=== PATIENT | female | born 1980 | race Caucasian/White ===

== ENCOUNTER 2016-08-14 08:02 | Day surgery (SDC) | payer BC, OTHER ==
[2016-07-31 15:19] VITALS: BMI 58.0
--- NOTE | 2016-07-31 16:10 | PAT Medication Instructions ---
Service Date Jul 31, 2016. Current Home Medication List Acetaminophen (Tylenol), 325 MG PO UD PRN for Pain Atorvastatin (Lipitor), 40 MG PO QPM Etanercept (Enbrel), 1 DOSE SQ saturdays Furosemide (Lasix), 20 MG PO 3 pm Hydrochlorothiazide (Hctz), 25 MG PO HS Hydrocodon/Acetaminophen 5MG/300MG (Vicodin (5MG/300MG)), 1 TAB PO BID PRN for Pain Ibuprofen (Motrin), 800 MG PO UD PRN for Pain Multiple Vitamins W/ Minerals (Hair Skin and Nails Formu), 1 TAB PO BID Naltrexone HCl-Bupropion HCl (Contrave 8-90 mg), 2 TAB PO QAM Naproxen (Aleve), 220 MG PO UD PRN for Pain Norethin Acet & Estrad-Fe (Minastrin 24 Fe), 1 DOSE PO HS Omeprazole (Prilosec), 20 MG PO QAM Medication Instructions For Your Scheduled Surgery Etanercept (Enbrel), 1 DOSE SQ saturdays (hold one week prior to and one week after surgery per office services assistant) - Hold the following medications 2 weeks prior to surgery: Multiple Vitamins W/ Minerals (Hair Skin and Nails Formu), 1 TAB PO BID - Hold the following medications 7-10 days prior to surgery: Naproxen (Aleve), 220 MG PO UD PRN for Pain Ibuprofen (Motrin), 800 MG PO UD PRN for Pain - Hold the following medications the morning of surgery: Naltrexone HCl-Bupropion HCl (Contrave 8-90 mg), 2 TAB PO QAM - Take the following medications the morning of surgery with a sip of water: Omeprazole (Prilosec), 20 MG PO QAM Hydrocodon/Acetaminophen 5MG/300MG (Vicodin (5MG/300MG)), 1 TAB PO BID PRN for Pain (can take up to four hours prior to surgery if needed) Acetaminophen (Tylenol), 325 MG PO UD PRN for Pain (if needed) - Take the following medications as scheduled the night before surgery: Hydrocodon/Acetaminophen 5MG/300MG (Vicodin (5MG/300MG)), 1 TAB PO BID PRN for Pain Norethin Acet & Estrad-Fe (Minastrin 24 Fe), 1 DOSE PO HS (not told to hold by surgeon) Hydrochlorothiazide (Hctz), 25 MG PO HS Furosemide (Lasix), 20 MG PO 3 pm Acetaminophen (Tylenol), 325 MG PO UD PRN for Pain Atorvastatin (Lipitor), 40 MG PO QPM If you have any questions please call us at [phone] or [phone] ( [place]) or [phone]
[2016-07-31 16:35] LABS: BASO % 0.1 %; BASO ABS # 0.01 K/uL (0-0.2); COMPLETE YES; EOS % 2.4 %; HEMATOCRIT 44.1 % (37-47); IG% 0.1 %; LYMPH % 22.8 %; LYMPH ABS # 1.94 K/uL (1.2-3.4); MEAN CELL VOLUME 93.2 fL (80-100); MEAN CORPUSCULAR HEMOGLOBIN 31.7 pg (25-34); MEAN PLATELET VOLUME 11.2 fL (7.4-10.4); MONO % 7.1 %; NEUT % 67.5 %; PLATELET COUNT 260 K/uL (130-400); RED BLOOD COUNT 4.73 M/uL (4.2-5.4)
[2016-07-31 16:48] LABS: BUN/CREATININE RATIO 16.7 (10-20); CALCIUM 8.2 mg/dl (8.5-10.1); CREATININE 0.68 mg/dl (0.60-1.20); POTASSIUM 3.8 mmol/L (3.5-5.1)
[~2016-08-14] VITALS: Ht 162.6 cm; Wt 152.8 kg
[~2016-08-14 08:02] MED LIST: ACET-1311 PO; ACETAMINOPHEN 1000 MG/100 ML IV IV ONE; ATOR-24 PO; CLINDAMYCIN 900MG IV SCH; ETAN50IN2 SQ; FURO-85 PO; HYDR-3419 PO; HYDR25TA4 PO; IBUP-1428 PO; LABETALOL HCL IV 5 MG/ML 20ML IV ONE; LACTATED RINGER'S 1000ML 1,000 ML IV SCH; MULT-1018 PO; NALT1TAB14 PO; NAPR1TAB9 PO; NORE1CHW11 PO; PRLSR20 PO; SCOPOLAMINE 1.5 MG TDSY TD SCH; [UNRECOGNIZED DRUG - REMARK] SCH
--- NOTE | 2016-08-14 08:18 | History and Physical ---
History & Physical Date Aug 14, 2016. Chief Complaint HOARSENESS History of Present Illness The patient is a 35 year old female with complaints of HOARSENESS FOR 3 MONTHS NOTED TO HAVE A RIGHT TRUE VOCAL FOLD CYSTIC LESION AND LIKELY LEFT TRUE VOCAL FOLD REACTIVE NODULE. PATIENT SCHEDULED FOR LEFT THYROID LOBECTOMY 09/11/16 BUT NEEDS TO HAVE DML WITH REMOVAL OF R AND POSSIBLE L TVF LESION PRIOR TO UNDERGOING THYROID SURGERY. Past Medical/Surgical History PMH: OBESITY, LEFT THYROID NODULE, HEARING LOSS PSH: S/P DL WITH B TVF NODULE REMOVAL, S/P BMT, S/P R EAR POLYP REMOVAL, S/P T&A , S/P BUTTOCK LIFT, S/P LIPECTOMY, S/P FOOT SURGERY, S/P KNEE SURGERY, S/P LEG THIGH/LEG LIFT, S/P CARPAL TUNNEL SURGERY Additional History Hepatic Disease: No Endocrine Disorder: No Kidney Disease: No Hypertension: No Heart Disease: No Bleeding Tendencies: No Infectious Diseases: No Allergies Coded Allergies: Clindamycin (Verified Allergy, Severe, rash, 07/31/16) Calamine (Verified Allergy, Unknown, rash, 07/31/16) "calamine lotion" Cephalexin (Verified Allergy, Unknown, welts, 07/31/16) Diphenhydramine (Verified Allergy, Unknown, rash/hives, 07/31/16) Lisinopril (Unverified Allergy, Unknown, per records , 07/31/16) Metoprolol (Unverified Allergy, Unknown, per records , 07/31/16) Morphine (Verified Allergy, Unknown, rash/hives, 07/31/16) Penicillins (Verified Allergy, Unknown, rash, 07/31/16) Home Medications Scheduled Atorvastatin (Lipitor), 40 MG PO QPM Etanercept (Enbrel), 1 DOSE SQ saturdays Furosemide (Lasix), 20 MG PO 3 pm Hydrochlorothiazide (Hctz), 25 MG PO HS Multiple Vitamins W/ Minerals (Hair Skin and Nails Formu), 1 TAB PO BID Naltrexone HCl-Bupropion HCl (Contrave 8-90 mg), 2 TAB PO QAM Norethin Acet & Estrad-Fe (Minastrin 24 Fe), 1 DOSE PO HS Omeprazole (Prilosec), 20 MG PO QAM Scheduled PRN Acetaminophen (Tylenol), 325 MG PO UD PRN for Pain Hydrocodon/Acetaminophen 5MG/300MG (Vicodin (5MG/300MG)), 1 TAB PO BID PRN for Pain Ibuprofen (Motrin), 800 MG PO UD PRN for Pain Naproxen (Aleve), 220 MG PO UD PRN for Pain Physical Examination Skin: warm/dry, no rash Eyes: normal inspection, EOMI, sclerae normal ENT: + pertinent finding (R TVF CYSTIC NODULE AND JUNCTION OF ANTERIOR AND MIDDLE 1/3'S AND L TVF REACTIVE NODULE; + SEVERE HOARSENESS) Head: normocephalic, atraumatic Neck: supple, no adenopathy, trachea midline Respiratory/Chest: lungs clear, normal breath sounds, no respiratory distress Cardiovascular: regular rate, rhythm, no edema, no murmur Neurologic/Psych: no motor/sensory deficits, alert, normal reflexes, oriented x 3 Diagnosis HOARSENESS, R TVF LESION, AND REACTIVE L TVF LESION Plan of Treatment DML WITH REMOVAL OF R TVF LESION AND POSSIBLY L TVF LESION
[2016-08-14 08:44] VITALS: BP 144/87; PULSE 85; TEMP 36.9; O2SAT 97; Ht 162.6 cm; Wt 152.8 kg
[2016-08-14] MEDS ORDERED: ONDANSETRON INJ 2 MG/ML 2 ML VIAL ONE ×2 (09:05→10:35)
[2016-08-14] MEDS ORDERED: ROCURONIUM BROMIDE 10 MG/ML 5 ML VIAL ONE (09:05)
[2016-08-14] MEDS ORDERED: SUCCINYLCHOLINE CHLORIDE 20 MG/ML 10 ML VIAL IV ONE (09:05)
[2016-08-14] MEDS ORDERED: LIDOCAINE HCL 2% 2 ML VIAL (20MG/ML) ONE (09:05)
[2016-08-14] MEDS ORDERED: PROPOFOL IV EMULSION 10 MG/ML 20 ML VIAL IV ONE (09:05)
[2016-08-14] MEDS ORDERED: DEXAMETHASONE SOD INJ 4 MG/ML VIAL ONE (09:05)
[2016-08-14] MEDS ORDERED: FENTANYL CITRATE INJ 50 MCG/1 ML 2 ML VIAL ONE ×2 (09:06→10:35)
[2016-08-14] MEDS ORDERED: EpINEphrine INJ 1MG/ML AMP 1 MG/ML AMP ONE (10:04)
--- NOTE | 2016-08-14 10:21 | [facility] Operative Report ---
Operative Report Operative Date Aug 14, 2016. Pre-Operative Diagnosis HOARSENESS, RIGHT TRUE VOCAL FOLD LESION Post-Operative Diagnosis SAME Procedure(s) Performed DIRECT MICROLARYNGOSCOPY WITH RIGHT TRUE VOCAL FOLD LESION REMOVAL Surgeon CYNTHIA Die Fitter Surgeon(s) NONE Estimated Blood Loss 1ML Findings SMALL CYSTIC APPEARING LESION INVOLVING R TVF AT JUNCTION OF ANTERIOR AND MIDDLE 1/3'S WITH SMALL TVF REACTIVE LESION Specimens RIGHT TRUE VOCAL FOLD LESION FOR PERMANENT PATHOLOGY I attest to the content of the Intraoperative Record and any orders documented therein. Any exceptions are noted below.
--- NOTE | 2016-08-14 10:22 | Discharge Instructions ---
Discharge Instructions Date of Service Aug 14, 2016. Admission Reason for Admission: Chronic Hoarseness Lesion Of Vocal Cord Discharge Discharge Diagnosis / Problem: SAME Discharge Goals Goal(s): Therapeutic intervention Activity Recommendations Activity Limitations: as noted below 1. ABSOLUTE VOICE REST FOR 72HRS 2. NO YELLING OR WHISPERING FOR 1 MONTH 3. NO DRIVING WHILE ON NORCO . Current Hospital Diet Patient's current hospital diet: Discharge Diet Recommended Diet: Regular Diet Pending Studies Studies pending at discharge: no Medical Emergencies . Who to Call and When: Medical Emergencies: If at any time you feel your situation is an emergency, please call 911 immediately. . Non-Emergent Contact Non-Emergency issues call your: Surgeon . . "Provider Documentation" section prepared by Erick Lacey. . VTE Core Measure Inpt VTE Proph given/why not?: SCD's
[2016-08-14] MEDS ORDERED: GLYCOPYRROLATE INJ 0.2 MG/ML VIAL ONE (10:28)
[2016-08-14] MEDS ORDERED: LABETALOL HCL IV 5 MG/ML 20ML IV ONE (10:28)
[2016-08-14] MEDS ORDERED: NEOSTIGMINE METHYLSULFATE 5 MG/5 ML SYR ONE (10:28)
[2016-08-14] MEDS ORDERED: HYDROCODONE/ACETAMOPHEN 5/325MG TAB PO PRN (10:30)
[2016-08-14] MEDS ORDERED: FENTANYL CITRATE INJ 50 MCG/1 ML 2 ML VIAL IV PRN (10:30)
[2016-08-14] MEDS ORDERED: ATROPINE SULFATE 0.1 MG/ML 5ML SYR IV PRN (10:30)
[2016-08-14] MEDS ORDERED: EpHEDrine SULFATE INJ 50 MG/ML AMP IV PRN (10:30)
[2016-08-14] MEDS ORDERED: ONDANSETRON INJ 2 MG/ML 2 ML VIAL IV PRN (10:30)
[2016-08-14 11:15] VITALS: BP 131/59; PULSE 61; TEMP 36.6; O2SAT 93
[2016-08-14 11:45] VITALS: BP 100/53; PULSE 60; O2SAT 94
--- NOTE | 2016-08-14 12:03 | Anesthesiology Progress Note ---
Anesthesia Post Op Note Date & Time Aug 14, 2016 at 12:02 Vital Signs Pain Intensity: 0 Vital Signs Past 12 Hours Date Time Temp Pulse Resp B/P (MAP) Pulse Ox O2 Delivery O2 Flow Rate FiO2 08/14/16 11:15 36.6 61 18 131/59 93 Room Air 08/14/16 11:05 36.1 59 16 112/65 96 Room Air 08/14/16 11:00 65 16 130/66 96 Oxymask 3 08/14/16 10:50 60 16 122/65 98 Oxymask 5 08/14/16 10:40 59 16 108/72 98 Oxymask 10 08/14/16 10:32 36.4 76 16 134/68 98 Oxymask 10 08/14/16 08:44 36.9 85 18 144/87 (106) 97 Room Air Notes Mental Status: alert / awake / arousable, participated in evaluation Pt Amnestic to Procedure: Yes Nausea / Vomiting: adequately controlled Pain: adequately controlled Airway Patency, RR, SpO2: stable & adequate BP & HR: stable & adequate Hydration State: stable & adequate Anesthetic Complications: no major complications apparent
[2016-08-14 12:15] VITALS: BP 108/59; PULSE 67; TEMP 36.5; O2SAT 95
--- NOTE | 2016-08-14 16:43 | OPERATIVE REPORT ---
DATE OF OPERATION: 08/14/2016 PREOPERATIVE DIAGNOSES: 1. Hoarseness. 2. Right true vocal fold cystic lesion. POSTOPERATIVE DIAGNOSES: Same. PROCEDURE: Direct microlaryngoscopy with removal of right true vocal fold lesion. SURGEON: Dr. Lacey. ANESTHESIA: General endotracheal. ESTIMATED BLOOD LOSS: 1 mL. FINDINGS: 1. Cystic lesion involving the right true vocal fold at the junction of the anterior and middle third. 2. Left true vocal fold reactive lesion in the same location. SPECIMENS: Right true vocal fold lesion sent for permanent pathological assessment. COMPLICATIONS: None. INDICATIONS FOR THE PROCEDURE: The patient is a 35-year-old female who is scheduled to undergo a left thyroid lobectomy on 09/11/2016 who had a 3-month history of hoarseness, which was progressive. She came back to my office and was found to have a right true vocal fold cystic lesion with likely reactive left true vocal fold nodule at the junction of the anterior middle thirds of the vocal folds. This was new since she was seen several months ago. 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 Arellano. The decision was made to take her to the operating room for the above-mentioned procedure on an outpatient elective basis prior to the left thyroid lobectomy given the risk of hoarseness after the thyroid lobectomy. DESCRIPTION OF PROCEDURE: After informed consent had been obtained from the patient, the patient was wheeled to the operating room and placed on the operative table in supine position. Monitors were placed. After induction of general endotracheal anesthesia with a size 60 endotracheal tube, the table was turned 90 degrees and the patient was placed in the sniffing position. A tooth guard was placed over the maxillary dentition and the operating laryngoscope was carefully inserted and used to inspect the oral cavity, oropharynx, hypopharynx, and larynx. The larynx was visualized and suspended on a roll of towels with a Lewy de jesus. A 0 degree bear telescope was used to take photodocumentation pictures of the right true vocal fold cystic lesion and left true vocal fold reactive nodule. Using the operating microscope and a 400 mm lens, a small cup forceps is used to grasp the cystic lesion atraumatically and straight microscissors was used to remove the cystic lesion with care to preserve as much mucosa on the [place] right true vocal fold as possible. The specimen was sent off for permanent pathological assessment. A pledget soaked in 1:1000 epinephrine was placed over the excision site. After 1 minute, this was removed and hemostasis was confirmed. Photodocumentation after removal of the lesion was then performed with a 0 degree telescope. The laryngoscope was then carefully removed. The oral cavity and oropharynx were suctioned. This marked the end of the case. The patient tolerated the procedure well. There were no apparent complications. The patient was extubated and transferred to the recovery room in stable condition. I attest to the content of the Intraoperative Record and any orders documented therein. Any exception s are noted below.
== END 2016-08-14 12:29 | disposition home or self-care (01) ==
LOC: C.ACU 08:02
DX: R49.0 Dysphonia (principal); J38.2 Nodules of vocal cords; I10 Essential (primary) hypertension; Z68.43 Body mass index [BMI] 50.0-59.9, adult; Z88.5 Allergy status to narcotic agent; Z88.1 Allergy status to other antibiotic agents; Z88.0 Allergy status to penicillin; M19.90 Unspecified osteoarthritis, unspecified site; E66.01 Morbid (severe) obesity due to excess calories; Z90.89 Acquired absence of other organs

== ENCOUNTER 2016-09-11 07:54 | Inpatient (IN) | payer BC ==
[2016-09-04 16:04] VITALS: BMI 54.0
[2016-09-11] VITALS (9 sets, daily range): BP systolic 111–148; BP diastolic 67–88; PULSE 73–93; TEMP 36.2–37; O2SAT 97; Ht 165.1 cm; Wt 149.6 kg
[~2016-09-11] VITALS: Ht 165.1 cm; Wt 149.6 kg
[~2016-09-11 07:54] MED LIST changes: -ACETAMINOPHEN 1000 MG/100 ML IV IV ONE; -CLINDAMYCIN 900MG IV SCH; +CLINDAMYCIN IV 900 MG in DEXTROSE 5% ADD-VANTAGE 100ML 100 ML IV SCH; -HYDR-3419 PO; -IBUP-1428 PO; -LABETALOL HCL IV 5 MG/ML 20ML IV ONE; -NALT1TAB14 PO; -NAPR1TAB9 PO; -SCOPOLAMINE 1.5 MG TDSY TD SCH; -[UNRECOGNIZED DRUG - REMARK] SCH
[2016-09-11] MEDS ORDERED: MIDAZOLAM HCL 1 MG/ML 2ML VIAL ONE (09:11)
[2016-09-11] MEDS ORDERED: FENTANYL CITRATE INJ 50 MCG/1 ML 2 ML VIAL ONE ×3 (09:11→12:55)
[2016-09-11] MEDS ORDERED: SCOPOLAMINE 1.5 MG TDSY TD ONE ×2 (09:50→10:00)
[2016-09-11] MEDS ORDERED: ATROPINE SULFATE 0.1 MG/ML 5ML SYR IV PRN (10:00)
[2016-09-11] MEDS ORDERED: HYDROmorphone INJ 1 MG/ML SYR IV PRN (10:00)
[2016-09-11] MEDS ORDERED: FENTANYL CITRATE INJ 50 MCG/1 ML 2 ML VIAL IV PRN (10:00)
[2016-09-11] MEDS ORDERED: ONDANSETRON INJ 2 MG/ML 2 ML VIAL IV PRN ×2 (10:00→14:00)
[2016-09-11] MEDS ORDERED: PROMETHAZINE HCL INJ 6.25 MG in SODIUM CHLORIDE 0.9% 50ML 50 ML IV PRN (10:00)
[2016-09-11] MEDS ORDERED: EpHEDrine SULFATE INJ 50 MG/ML AMP IV PRN (10:00)
--- NOTE | 2016-09-11 10:16 | History and Physical ---
History & Physical Date Sep 11, 2016. Chief Complaint LEFT THYROID NODULE History of Present Illness The patient is a 35 year old female with ENLARGED 3.1CM LEFT THYROID NODULE WITH OVERALL LEFT THYROID GLAND ENLARGEMENT WITH TRACHEAL COMPRESSION TO THE RIGHT WITH MILD COMPRESSIVE SYMPTOMATOLOGY. Past Medical/Surgical History PMH: MORBID OBESITY, SNHL PSH: S/P DML WITH BX 07/2016, S/P BUTTOCK LIFT, S/P ABDOMINAL LIPECTOMY, S/P FOOT SURGERY, S/P KNEE SURGERY, S/P LEG AND THIGH LIFTS, S/P CARPAL TUNNEL RELEASE Additional History Hepatic Disease: No Endocrine Disorder: No Kidney Disease: No Hypertension: No Heart Disease: No Bleeding Tendencies: No Infectious Diseases: No Allergies Coded Allergies: Lisinopril (Verified Allergy, Severe, per records FACIAL SWELLING, 09/11/16 ) FACIAL SWELLING Calamine (Verified Allergy, Intermediate, rash, 09/11/16) "calamine lotion" Cephalexin (Verified Allergy, Intermediate, welts, 09/11/16) Clindamycin (Verified Allergy, Intermediate, rash, 09/11/16) Diphenhydramine (Verified Allergy, Intermediate, rash/hives, 09/11/16) Metoprolol (Verified Allergy, Intermediate, per records FACIAL RASH, ) FACIAL RASHING Morphine (Verified Allergy, Intermediate, rash/hives, 09/11/16) Penicillins (Verified Allergy, Intermediate, rash, 09/11/16) Home Medications Scheduled Atorvastatin (Lipitor), 40 MG PO QPM Etanercept (Enbrel), 1 DOSE SQ saturdays Furosemide (Lasix), 20 MG PO 3 pm Hydrochlorothiazide (Hctz), 25 MG PO HS Multiple Vitamins W/ Minerals (Hair Skin and Nails Formu), 1 TAB PO BID Norethin Acet & Estrad-Fe (Minastrin 24 Fe), 1 DOSE PO HS Omeprazole (Prilosec), 20 MG PO QAM Scheduled PRN Acetaminophen (Tylenol), 325 MG PO UD PRN for Pain Physical Examination Skin: warm/dry, no rash Eyes: normal inspection, EOMI, sclerae normal ENT: normal ENT inspection, pharynx normal Head: normocephalic, atraumatic Neck: + pertinent finding (OBESE, L THYROID ENLARGEMENT RELATIVE TO R) Respiratory/Chest: lungs clear Cardiovascular: regular rate, rhythm, no edema, no murmur Neurologic/Psych: no motor/sensory deficits, alert, normal reflexes, oriented x 3 Diagnosis L THYROID NODULE WITH COMPRESSIVE SYMPTOMATOLOGY Plan of Treatment LEFT THYROID LOBECTOMY
[2016-09-11] MEDS ORDERED: BACITRACIN OINT 15 GM TUBE ONE (11:26)
[2016-09-11] MEDS ORDERED: LIDOCAINE/EPINEPHRINE 1% 20 ML VIAL ONE (11:26)
[2016-09-11] MEDS ORDERED: THROMBIN 5000 UNITS KIT ONE (11:27)
[2016-09-11] MEDS ORDERED: SUCCINYLCHOLINE CHLORIDE 20 MG/ML 10 ML VIAL IV ONE (12:05)
[2016-09-11] MEDS ORDERED: ROCURONIUM BROMIDE 10 MG/ML 5 ML VIAL ONE (12:05)
[2016-09-11] MEDS ORDERED: LIDOCAINE HCL 2% 2 ML VIAL (20MG/ML) ONE (12:05)
[2016-09-11] MEDS ORDERED: ONDANSETRON INJ 2 MG/ML 2 ML VIAL ONE (12:05)
[2016-09-11] MEDS ORDERED: PROPOFOL IV EMULSION 10 MG/ML 20 ML VIAL IV ONE (12:05)
[2016-09-11] MEDS ORDERED: DEXAMETHASONE SOD INJ 4 MG/ML VIAL ONE (12:05)
[2016-09-11] MEDS ORDERED: ALBUTEROL HFA INHALER 8.5 GM INH ONE (12:06)
[2016-09-11] MEDS ORDERED: SURGICEL ABSORB HEMOSTAT 2IN X 14IN TOP ONE (12:43)
--- NOTE | 2016-09-11 13:52 | Discharge Instructions ---
Discharge Instructions Date of Service Sep 11, 2016. Admission Reason for Admission: Left Thyroid Nodule Discharge Discharge Diagnosis / Problem: same Discharge Goals Goal(s): Diagnostic testing, Therapeutic intervention Activity Recommendations Activity Limitations: as noted below 1. LIGHT ACTIVITY FOR 2 WEEKS 2. OK TO TAKE OFF FROM WORK FOR 2 WEEKS 3. ICE TO NECK MUCH POSSIBLE FOR 1 WEEK 4. KEEP INCISION DRY FOR 1 WEEK 5. NO DRIVING WHILE ON NORCO . Current Hospital Diet Patient's current hospital diet: Discharge Diet Recommended Diet: Regular Diet Procedures Procedures Performed: Left Thyroid Lobectomy Pending Studies Studies pending at discharge: no Medical Emergencies . Who to Call and When: Medical Emergencies: If at any time you feel your situation is an emergency, please call 911 immediately. . Non-Emergent Contact Non-Emergency issues call your: Surgeon . . "Provider Documentation" section prepared by Erick Lacey. . VTE Core Measure Inpt VTE Proph given/why not?: SCD's
[2016-09-11] MEDS ORDERED: ACETAMINOPHEN 325 MG TAB PO PRN (14:00)
[2016-09-11] MEDS ORDERED: HYDROCODONE/ACETAMOPHEN 5/325MG TAB PO PRN (14:00)
[2016-09-11] MEDS ORDERED: ESMOLOL HCL 10 MG/ML 10 ML VIAL ONE (14:16)
--- NOTE | 2016-09-11 14:46 | [facility] Operative Report ---
Operative Report Operative Date Sep 11, 2016. Pre-Operative Diagnosis Left Thyroid Nodule with Compressive Symptomatology Post-Operative Diagnosis Left Thyroid Nodule with Compressive Symptomatology Procedure(s) Performed Left Thyroid Lobectomy Surgeon Dr. Erick Lacey Help Desk Internship Surgeon(s) Cesilia Sim PA-C Estimated Blood Loss 50ml Findings 1. Large approximate 3 cm to 4 cm left inferior thyroid nodule with substernal extension and tracheal deviation to the right Specimens Permanent Specimen: A. Left Thryoid Lobe - double stitch = superior pole -single stich = isthmus Anesthesia Gen. endotracheal Complication(s) None Indications The patient is a 35-year-old female with a several year history of a left thyroid nodule which has slightly increased in size. The nodule was 3.1 cm on her latest ultrasound and there is tracheal deviation to the right on previous CT scan performed. She does have mild compressive symptomatology including dysphagia and orthopnea. Of note she does have severe morbid obesity. She also has a very small subcentimeter nodule on the right side but did not want total thyroidectomy and therefore presents for left thyroid lobectomy on an inpatient elective basis. She understands that if her pathology on her left thyroid lobectomy as ligament, she will need a completion right thyroid lobectomy. Description of Procedure After informed consent had been obtained from the patient, the patient was wheeled to the operating room and placed on the operating room table in the supine position. Monitors were placed, and after the induction of general endotracheal anesthesia with a nerve integrity monitor endotracheal tube, the patient's head and neck gently extended and a marking pen was used to outline the planned 6 cm incision in a natural skin crease 2 finger breaths above the level of the clavicles. Of note the patient's breast tissue had to be taped down in order to get adequate exposure of her neck. 3 mL of 1% lidocaine with 1 -100,000 epinephrine was used to inject the skin and subcutaneous tissues overlying the planned incision site. The skin of the neck and chest were then prepped and draped in usual sterile fashion. A #15 scalpel was used to make the incision through the skin, subcutaneous tissue, and platysma. Subplatysmal flaps were raised superiorly to the level of the thyroid notch and inferiorly to the level of the clavicles. The median raphe of the strap muscles was divided using Bovie electrocautery. The strap muscles were retracted laterally and the middle thyroid vein was divided using a harmonic scalpel. Both the superior and inferior thyroid vascular pedicles were divided adjacent to the thyroid capsule using a harmonic scalpel. Dissection was carried lateral to medial with care to identify and preserve the left recurrent laryngeal nerve as well as superior and inferior parathyroid candidates. The thyroid isthmus was then divided using Bovie electrocautery. Of note there was significant substernal extension of her left inferior thyroid and the nodule was approximately 4 cm in greatest dimension. A small cuff of thyroid tissue was left adjacent to the left recurrent laryngeal nerve due to its close proximity to the nerve and difficult and dissection free from the nerve. The left thyroid lobectomy was sent off for permanent pathological assessment and after placing orienting sutures on the superior pole and isthmus. The wound was copiously irrigated and suctioned. Bipolar electrocautery was used to achieve adequate hemostasis. The left recurrent laryngeal nerve was found to be intact and stimulated after the procedure. Small pieces of Surgicel followed by topical spray thrombin were placed into the left tracheoesophageal groove for added hemostasis. The strap muscles were then reapproximated using a simple running interlocked 3- 0 Vicryl suture. The platysma was then closed with several deep dermal 4-0 Monocryl sutures. The skin was then closed with a simple running subcuticular 5 -0 Monocryl suture. Incision was cleansed and dried. Dermabond was applied to the incision. This marked the end of the case. There were no apparent complications. The patient was extubated and transferred to the recovery room in stable condition. I attest to the content of the Intraoperative Record and any orders documented therein. Any exceptions are noted below.
[2016-09-11] MEDS ORDERED: NURSING VERBAL MED ORDER ONE (15:40)
[2016-09-11] MEDS ORDERED: ACETAMINOPHEN 1000 MG/100 ML IV IV ONE (15:41)
--- NOTE | 2016-09-11 16:44 | Anesthesiology Progress Note ---
Anesthesia Post Op Note Date & Time Sep 11, 2016 at 16:43 Vital Signs Pain Intensity: 2 Vital Signs Past 12 Hours Date Time Temp Pulse Resp B/P (MAP) Pulse Ox O2 Delivery O2 Flow Rate FiO2 09/11/16 16:00 85 15 152/76 97 Nasal Cannula 2 09/11/16 15:45 84 16 132/81 97 Nasal Cannula 2 09/11/16 15:35 36.2 88 19 133/86 100 Nasal Cannula 2 09/11/16 15:25 85 16 132/77 98 Nasal Cannula 4 09/11/16 15:15 85 15 133/77 98 Nasal Cannula 4 09/11/16 15:05 77 18 132/79 96 Nasal Cannula 4 09/11/16 14:55 81 19 142/76 96 Nasal Cannula 4 09/11/16 14:45 92 25 138/81 94 Nasal Cannula 4 09/11/16 14:35 87 19 139/83 92 Nasal Cannula 4 09/11/16 14:25 106 21 127/82 93 Nasal Cannula 4 09/11/16 14:17 36.2 86 14 147/70 96 Mask 10 09/11/16 08:19 37 86 18 146/67 (93) 97 Room Air Notes Mental Status: alert / awake / arousable, participated in evaluation Pt Amnestic to Procedure: Yes Nausea / Vomiting: adequately controlled, improving with treatment Pain: adequately controlled Airway Patency, RR, SpO2: stable & adequate BP & HR: stable & adequate Hydration State: stable & adequate Anesthetic Complications: no major complications apparent Patient did have some PONV which improved with treatment with zofran, fluid bolus, and phenergan.
[2016-09-11] MEDS: LACTATED RINGER'S 1000ML 1,000 ML IV SCH ×2 (18:19→20:27)
[2016-09-11] MEDS: CEROVITE ADV FORMULA TAB PO SCH (20:29)
[2016-09-11] MEDS ORDERED: HYDROCHLOROTHIAZIDE 25 MG TAB PO SCH (21:00)
[2016-09-11] MEDS ORDERED: ATORVASTATIN 20 MG TAB PO SCH (21:00)
[2016-09-12 03:35] VITALS: BP 116/78; PULSE 72; TEMP 36.5; O2SAT 96
[2016-09-12] MEDS: LACTATED RINGER'S 1000ML 1,000 ML IV SCH (04:47)
--- NOTE | 2016-09-12 05:24 | Progress Note ---
Progress Note Date of Service Sep 12, 2016. Progress Note The patient is postoperative day #1 status post left thyroid lobectomy with intraoperative findings of a large left thyroid gland with a large inferior nodule with substernal extension. The patient denies any postoperative problems. She is expected postoperative pain and mild odynophagia. She denies any coughing during drinking or eating. She denies any voice change. She denies any numbness or tingling along her lips, fingers, or post and/or any involuntary muscle spasms or cramping. On exam, the patient is afebrile and her vital signs are stable. She has mild raspy hoarseness which is similar to her preoperative voice. Her thyroidectomy incision is clean, dry, and intact with Dermabond in place and no evidence of hematoma. The patient is postoperative day #1 status post left thyroid lobectomy. She'll be discharged to home. She should observe light activity for 2 weeks. She may stay home from work for 2 weeks. Follow up next week as [place] scheduled. She should keep ice on her neck as much as possible for the next week and keep her incision dry as well.
--- NOTE | 2016-09-12 05:26 | Discharge Summary ---
Discharge Summary Date of Service Sep 12, 2016. Discharge Summary Date of admission: 09/11/2016 Date of discharge: 09/12/2016 Admission diagnosis: Left thyroid nodule with compressive symptomatology Discharge diagnosis: Same as above with substernal extension Hospital course: The patient is a 35-year-old female with a history of a left thyroid nodule which measured approximately 3 cm in greatest dimension on ultrasound and CT scan. She is found to have tracheal compression to the right and does have some compressive symptomatology. 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 She underwent left thyroid lobectomy on 09/11/2016 with intraoperative findings of the large left thyroid gland with a significant left inferior pole thyroid nodule with substernal extension and tracheal compression to the right. The patient tolerated procedure well with no apparent postoperative complications. She was discharged home on postoperative day #1 in stable condition on the following medications: 1. [place] 5 mg/325 mg- 1-2 tablets by mouth every 4 hours when necessary for severe pain. The patient should observe light activity for 2 weeks. She may stay home from work for 2 weeks if needed. She should keep ice on her incision for 1 week. She should keep her incision dry for 1 week. She has a follow-up appointment rescheduled for next week.
[2016-09-12 07:26] VITALS: BP 128/78; PULSE 70; TEMP 36.9
[2016-09-12 08:06] VITALS: BP 128/78; PULSE 70; TEMP 36.9; O2SAT 96
--- NOTE | 2016-09-12 08:23 | Anesthesiology Progress Note ---
Anesthesia Post Op Note Date & Time Sep 12, 2016 at 08:23 Vital Signs Vital Signs Past 12 Hours Date Time Temp Pulse Resp B/P (MAP) Pulse Ox O2 Delivery O2 Flow Rate FiO2 09/12/16 08:06 36.9 70 18 96 Room Air 09/12/16 07:26 36.9 70 18 128/78 09/12/16 07:20 Room Air 09/12/16 03:35 36.5 72 15 116/78 (91) 96 Room Air 09/12/16 00:15 Room Air 09/11/16 22:58 36.6 83 16 111/72 09/11/16 20:35 36.6 73 16 148/76 Notes Mental Status: alert / awake / arousable, participated in evaluation Pt Amnestic to Procedure: Yes Nausea / Vomiting: adequately controlled Pain: adequately controlled Airway Patency, RR, SpO2: stable & adequate BP & HR: stable & adequate Hydration State: stable & adequate Anesthetic Complications: no major complications apparent
[2016-09-12] MEDS: CEROVITE ADV FORMULA TAB PO SCH (08:58)
[2016-09-12] MEDS ORDERED: FUROSEMIDE 20 MG TAB PO SCH (09:00)
[2016-09-12] MEDS ORDERED: PANTOprazole SOD 40 MG TAB PO SCH (09:00)
== END 2016-09-12 09:35 | disposition home or self-care (01) | DRG 626 ==
LOC: C.ACU 07:54 → C.MSW 08:05 → ENRESERV 15:14
PROC: 0GTG0ZZ Resection of Left Thyroid Gland Lobe, Open Approach (ICD-10-PCS; principal; 2016-09-11 09:45)
DX: E04.1 Nontoxic single thyroid nodule (principal); Z68.43 Body mass index [BMI] 50.0-59.9, adult; J39.8 Other specified diseases of upper respiratory tract; R11.2 Nausea with vomiting, unspecified; R13.19 Other dysphagia; R06.01 Orthopnea; I10 Essential (primary) hypertension; E78.5 Hyperlipidemia, unspecified; K21.9 Gastro-esophageal reflux disease without esophagitis; L40.50 Arthropathic psoriasis, unspecified; M19.90 Unspecified osteoarthritis, unspecified site; H90.5 Unspecified sensorineural hearing loss; E66.01 Morbid (severe) obesity due to excess calories; Z84.89 Family history of other specified conditions; Z79.890 Hormone replacement therapy; Z79.899 Other long term (current) drug therapy